=== PATIENT | male | born 1990 ===

== ENCOUNTER 2016-11-15 15:16 | Emergency (ER) | payer OTHER, BC ==
--- NOTE | 2016-11-15 15:22 | ED PDOC ---
Arrival/HPI - General Time Seen by Provider: 11/15/16 15:19 Historian: Patient - History of Present Illness Narrative History of Present Illness (Text): 11/15/16 15:19 26 yh/o male, no pmh, nkda, last tetanus doesn't remember, c/o finger laceration x 5 hours. Pt. stated that he was accidentally cut by the knife, no numbness or tingling, no dizziness, no headache or night sweat, no dizziness, no rash, no loss of sensation, no other medical or psychological complaints. Past Medical History - Provider Review Nursing Documentation Reviewed: Yes - Infectious Disease Hx of Infectious Diseases: None - Tetanus Immunization Tetanus Immunization: Unknown - Past Medical History Past Medical History: No Previous - Cardiac Hx Cardiac Disorders: No - Pulmonary Hx Respiratory Disorders: No - Neurological Hx Neurological Disorder: No - HEENT Hx HEENT Disorder: No - Renal Hx Renal Disorder: No Hx Dialysis: No - Endocrine/Metabolic Hx Endocrine Disorders: No - Hematological/Oncological Hx Blood Disorders: No - Integumentary Hx Dermatological Disorder: No - Musculoskeletal/Rheumatological Hx Musculoskeletal Disorders: No - Gastrointestinal Hx Gastrointestinal Disorders: No - Genitourinary/Gynecological Hx Genitourinary Disorders: No - Psychiatric Hx Depression: No Hx Emotional Abuse: No Hx Physical Abuse: No Hx Substance Use: No - Past Surgical History Past Surgical History: No Previous - Anesthesia Hx Anesthesia: No Hx Anesthesia Reactions: No Hx Malignant Hyperthermia: No - Suicidal Assessment Feels Threatened In Home Enviroment: No Family/Social History - Physician Review Nursing Documentation Reviewed: Yes Family/Social History: Unknown Family HX Smoking Status: Never Smoked Hx Alcohol Use: No Hx Substance Use: No Hx Substance Use Treatment: No Allergies/Home Meds Allergies/Adverse Reactions: Allergies No Known Allergies Allergy (Verified 11/15/16 15:25) Review of Systems - Review of Systems Constitutional: absent: Fatigue, Fevers Eyes: absent: Vision Changes ENT: absent: Hearing Changes Respiratory: absent: SOB, Cough Cardiovascular: absent: Chest Pain Gastrointestinal: absent: Abdominal Pain, Diarrhea, Nausea, Vomiting Skin: Laceration. absent: Rash, Pruritis, Skin Lesions, Abscess, Ulcer, Cellulitis Physical Exam Vital Signs Temp Pulse Resp BP Pulse Ox 11/15/16 15:21 98.7 F 86 18 146/71 97 Appearance: Positive for: Well-Appearing, Non-Toxic, Comfortable Pain Distress: Mild Mental Status: Positive for: Alert and Oriented X 3 - Systems Exam Head: Present: Atraumatic, Normocephalic Pupils: Present: PERRL Extroacular Muscles: Present: EOMI Conjunctiva: Present: Normal Mouth: Present: Moist Mucous Membranes Neck: Present: Normal Range of Motion Respiratory/Chest: Present: Clear to Auscultation, Good Air Exchange. No: Respiratory Distress, Accessory Muscle Use Cardiovascular: Present: Regular Rate and Rhythm, Normal S1, S2. No: Murmurs Abdomen: Present: Normal Bowel Sounds. No: Tenderness, Distention, Peritoneal Signs Back: Present: Normal Inspection Upper Extremity: Present: Normal Inspection, Other (Rt. hand 4th digit: distal tuft ventral pad aspect visible approx. 2cm laceration wound with no active bleeding, FROM without limitation, sensation intact, motor 5/5, +radial uplse, capillary refill< 2 seconds, neurovascular intact. ). No: Cyanosis, Edema Lower Extremity: Present: Normal Inspection. No: Edema Neurological: Present: GCS=15, Speech Normal Skin: Present: Warm, Dry, Normal Color. No: Rashes Psychiatric: Present: Alert, Oriented x 3, Normal Insight, Normal Concentration Medical Decision Making ED Course and Treatment: 11/15/16 15:20 -keflex, motrin, tetanus. -sensation intact, motor 5/5, wound irrigate with 1000cc normal saline, clean with betadine, 1% lidocaine for digit block with 2cc, sterile procedure, 5-0 nylon made 5 sutures, hemostasis obtained, bacitracin and gauze dressing applied , sensation intact, motor 5/5, Discharge home with keflex, motrin, bacitracin oinment, keep the dressing dry and clean for 2 days, sutures need to be removed by day 12-3, avoid strenuous exercise or activity, follow up with your own pmd and hand specialist within 2 days, return to the ER for any new or worsening signs or symptoms. - Medication Orders Current Medication Orders: Discontinued Medications Tetanus/Reduced Diphtheria/Acell Pertussis (Boostrix Vaccine Inj) 0.5 ml IM .ONCE ONE Stop: 11/15/16 15:49 Last Admin: 11/15/16 15:58 Dose: 0.5 ml - PA / MEETING PLANNER / Resident Statement MD/DO has reviewed & agrees with the documentation as recorded. Disposition/Present on Arrival - Present on Arrival Any Indicators Present on Arrival: No History of DVT/PE: No History of Uncontrolled Diabetes: No Urinary Catheter: No History of Decub. Ulcer: No History Surgical Site Infection Following: None - Disposition Have Diagnosis and Disposition been Completed?: Yes Diagnosis: Finger laceration Disposition Time: 15:22 Condition: GOOD Additional Instructions: Discharge home with keflex, motrin, bacitracin oinment, keep the dressing dry and clean for 2 days, sutures need to be removed by day 12-3, avoid strenuous exercise or activity, follow up with your own pmd and hand specialist within 2 days, return to the ER for any new or worsening signs or symptoms. Prescriptions: Bacitracin Ointment [Bacitracin] 1 appful TOP BID #15 g Cephalexin [Keflex] 500 mg PO TID #21 capsule Ibuprofen [Motrin Tab] 600 mg PO QID PRN #24 tab PRN Reason: Other Referrals: [facility] at [facility] [place] - Follow up with primary Lyn Tejada MD [Non-Staff] - Follow up with primary Forms: WORK NOTE
[2016-11-15 15:25] VITALS: BMI 25.0
[2016-11-15] MEDS ORDERED: TDAP Vaccine 0.5 mL Syr IM ONE (15:48)
[2016-11-15 16:33] VITALS: BP 124/79; PULSE 73; RESP 20; TEMP 98; O2SAT 100
== END 2016-11-15 16:00 | disposition home or self-care (01) ==
LOC: ED 15:16
DX: S61.214A Laceration without foreign body of right ring finger without damage to nail, initial encounter (principal); W26.0XXA Contact with knife, initial encounter; Y93.89 Activity, other specified; Y92.89 Other specified places as the place of occurrence of the external cause; Y99.8 Other external cause status; Z23 Encounter for immunization

== ENCOUNTER 2016-11-18 08:42 | Emergency (ER) | payer OTHER ==
[2016-11-18 08:43] VITALS: BMI 25.0
--- NOTE | 2016-11-18 09:11 | ED PDOC ---
Arrival/HPI - General Chief Complaint: Wound Check Time Seen by Provider: 11/18/16 09:02 Historian: Patient - History of Present Illness Narrative History of Present Illness (Text): 11/18/16 09:08 26yo male present to ED for wound care. He was seen here on November 15 for left 4th finger laceration and sutures was placed. States he was told to come back for re evaluation. He is currently on Keflex. Denies purulent discharge from wound, fever, chills, redness, any other complaint. Past Medical History - Provider Review Nursing Documentation Reviewed: Yes - Infectious Disease Hx of Infectious Diseases: None - Tetanus Immunization Tetanus Immunization: Unknown - Past Medical History Past Medical History: No Previous - Cardiac Hx Cardiac Disorders: No - Pulmonary Hx Respiratory Disorders: No - Neurological Hx Neurological Disorder: No - HEENT Hx HEENT Disorder: No - Renal Hx Renal Disorder: No Hx Dialysis: No - Endocrine/Metabolic Hx Endocrine Disorders: No - Hematological/Oncological Hx Blood Disorders: No - Integumentary Hx Dermatological Disorder: No - Musculoskeletal/Rheumatological Hx Musculoskeletal Disorders: No - Gastrointestinal Hx Gastrointestinal Disorders: No - Genitourinary/Gynecological Hx Genitourinary Disorders: No - Psychiatric Hx Depression: No Hx Emotional Abuse: No Hx Physical Abuse: No Hx Substance Use: No - Past Surgical History Past Surgical History: No Previous - Surgical History Hx Appendectomy: Yes - Anesthesia Hx Anesthesia: No Hx Anesthesia Reactions: No Hx Malignant Hyperthermia: No - Suicidal Assessment Feels Threatened In Home Enviroment: No Family/Social History - Physician Review Nursing Documentation Reviewed: Yes Family/Social History: Unknown Family HX Smoking Status: Never Smoked Hx Alcohol Use: No Hx Substance Use: No Hx Substance Use Treatment: No Allergies/Home Meds Allergies/Adverse Reactions: Allergies No Known Allergies Allergy (Verified 11/15/16 15:25) Review of Systems - Physician Review All systems were reviewed & negative as marked: Yes - Review of Systems Constitutional: Normal Eyes: Normal ENT: Normal Respiratory: Normal Cardiovascular: Normal Gastrointestinal: Normal Genitourinary Male: Normal Musculoskeletal: Normal Skin: Other (Wound check) Neurological: Normal Endocrine: Normal Hemo/Lymphatic: Normal Psychiatric: Normal Physical Exam Vital Signs Reviewed: Yes Vital Signs Temp Pulse Resp BP Pulse Ox 11/18/16 09:03 98.2 F 75 16 136/84 96 Temperature: Afebrile Blood Pressure: Normal Pulse: Regular Respiratory Rate: Normal Appearance: Positive for: Well-Appearing, Non-Toxic, Comfortable Pain Distress: None Mental Status: Positive for: Alert and Oriented X 3 - Systems Exam Head: Present: Atraumatic, Normocephalic Pupils: Present: PERRL Extroacular Muscles: Present: EOMI Conjunctiva: Present: Normal Mouth: Present: Moist Mucous Membranes Neck: Present: Normal Range of Motion Respiratory/Chest: Present: Clear to Auscultation, Good Air Exchange. No: Respiratory Distress, Accessory Muscle Use Cardiovascular: Present: Regular Rate and Rhythm, Normal S1, S2. No: Murmurs Abdomen: Present: Normal Bowel Sounds. No: Tenderness, Distention, Peritoneal Signs Back: Present: Normal Inspection Upper Extremity: Present: Normal Inspection. No: Cyanosis, Edema Lower Extremity: Present: Normal Inspection. No: Edema Neurological: Present: GCS=15, CN II-XII Intact, Speech Normal Skin: Present: Warm, Dry, Normal Color, Other (Sutures noted in place to left 4th finger. No erythema. No purulent discharge. No sign of infection). No: Rashes Psychiatric: Present: Alert, Oriented x 3, Normal Insight, Normal Concentration Medical Decision Making ED Course and Treatment: 11/18/16 09:12 Pt was afebrile, wound noted without sign of infection. Wound was lightly irrigated , bacitracine applied and dressed. He was DC and advised to f/u with his PMD. TRT ED for any new or worsening symptoms. Disposition/Present on Arrival - Present on Arrival Any Indicators Present on Arrival: No History of DVT/PE: No History of Uncontrolled Diabetes: No Urinary Catheter: No History of Decub. Ulcer: No History Surgical Site Infection Following: None - Disposition Have Diagnosis and Disposition been Completed?: Yes Diagnosis: Visit for wound check Disposition: HOME/ ROUTINE Disposition Time: 09:15 Patient Plan: Discharge Condition: STABLE Discharge Instructions (ExitCare): Acute Wound Care (ED) Additional Instructions: Keep wound clean and dry Continue with medication Follow up with your Private Doctor Return to ED for any new symptoms Referrals: [facility] at [facility] [place] [Outside] - Follow up with primary
[2016-11-18 09:13] VITALS: BP 136/84; PULSE 75; RESP 16; TEMP 98.2; O2SAT 96
== END 2016-11-18 09:17 | disposition home or self-care (01) ==
LOC: ED 08:42
DX: Z51.89 Encounter for other specified aftercare (principal)

== ENCOUNTER 2016-11-28 18:35 | Emergency (ER) | payer OTHER ==
[2016-11-28 18:36] VITALS: BMI 25.0
[2016-11-28 18:43] VITALS: BP 117/77; PULSE 74; RESP 16; TEMP 98.4; O2SAT 96
--- NOTE | 2016-11-28 19:28 | ED PDOC ---
Arrival/HPI - General Chief Complaint: Suture/Staple Removal Time Seen by Provider: 11/28/16 18:37 Historian: Patient - History of Present Illness Narrative History of Present Illness (Text): 11/28/16 19:47 26yr old male presents today for suture removal to right 4th finger. pt states sutures have been in place for 13 days. pt states he has been working daily 10 hours a day with gloves on. pt states he has had wound covered daily with bacitracin applied. pt denies fever/chills. denies pain. pt states he completed course of ABx. denies limited rom of finger. no other complaints. Time/Duration: Other (13days) Past Medical History - Provider Review Nursing Documentation Reviewed: Yes - Travel History Have you recently traveled outside [place] w/in the past 3 mons?: No - Infectious Disease Hx of Infectious Diseases: None - Tetanus Immunization Tetanus Immunization: Unknown - Past Medical History Past Medical History: No Previous - Cardiac Hx Cardiac Disorders: No - Pulmonary Hx Respiratory Disorders: No - Neurological Hx Neurological Disorder: No - HEENT Hx HEENT Disorder: No - Renal Hx Renal Disorder: No Hx Dialysis: No - Endocrine/Metabolic Hx Endocrine Disorders: No - Hematological/Oncological Hx Blood Disorders: No - Integumentary Hx Dermatological Disorder: No - Musculoskeletal/Rheumatological Hx Musculoskeletal Disorders: No - Gastrointestinal Hx Gastrointestinal Disorders: No - Genitourinary/Gynecological Hx Genitourinary Disorders: No - Psychiatric Hx Depression: No Hx Emotional Abuse: No Hx Physical Abuse: No Hx Substance Use: No - Past Surgical History Past Surgical History: No Previous - Surgical History Hx Appendectomy: Yes - Anesthesia Hx Anesthesia: No Hx Anesthesia Reactions: No Hx Malignant Hyperthermia: No - Suicidal Assessment Feels Threatened In Home Enviroment: No Family/Social History - Physician Review Nursing Documentation Reviewed: Yes Family/Social History: Unknown Family HX Smoking Status: Never Smoked Hx Alcohol Use: No Hx Substance Use: No Hx Substance Use Treatment: No Allergies/Home Meds Allergies/Adverse Reactions: Allergies No Known Allergies Allergy (Verified 11/28/16 18:42) Review of Systems - Review of Systems Constitutional: absent: Fatigue, Fevers Respiratory: absent: SOB, Cough Cardiovascular: absent: Chest Pain, Palpitations Gastrointestinal: absent: Abdominal Pain, Nausea, Vomiting Musculoskeletal: absent: Arthralgias, Back Pain, Neck Pain Skin: Laceration Neurological: absent: Headache, Dizziness Physical Exam Vital Signs Reviewed: Yes Vital Signs Temp Pulse Resp BP Pulse Ox 11/28/16 18:43 98.4 F 74 16 117/77 96 Temperature: Afebrile Blood Pressure: Normal Pulse: Regular Respiratory Rate: Normal Appearance: Positive for: Well-Appearing, Non-Toxic, Comfortable Pain Distress: None Mental Status: Positive for: Alert and Oriented X 3 - Systems Exam Head: Present: Atraumatic Mouth: Present: Moist Mucous Membranes Respiratory/Chest: Present: Clear to Auscultation, Good Air Exchange. No: Respiratory Distress, Accessory Muscle Use Cardiovascular: Present: Regular Rate and Rhythm, Normal S1, S2. No: Murmurs Upper Extremity: Present: Normal ROM, NORMAL PULSES, Swelling, Capillary Refill < 2s, Other (there is a macerated, laceration with [address] no erythema; no purulent discharge. ). No: Tenderness, Deformity Skin: Present: Warm, Dry Psychiatric: Present: Alert Medical Decision Making ED Course and Treatment: 11/28/16 19:32 Patient is nontoxic well-appearing in no distress. Vital signs are stable. sutures have been in place for 13 days. 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 will remove sutures. suture removal: 5 sutures removed, wound not completely healed. steri strips applied; will add bactrim PO/ kelfex po pt seen and evaluated by dr. pinedo. advised keeping wound clean and DRY. advised f/u with hand specialist. advised immediate return if symptoms worsen persist or if new symptoms develop. Impression: Wound check, suture removal Keep the wound clean and dry bactrim twice daily x 7 days keflex; 1 capsule 4 times daily x 7 days. Follow up with primary care physician within the next 2 days Follow up with the Hand specialist within the next 2 days. Follow up with the surgeon within the next 2 days. Return immediately if symptoms worsen persist or if new symptoms develop Disposition/Present on Arrival - Present on Arrival Any Indicators Present on Arrival: No History of DVT/PE: No History of Uncontrolled Diabetes: No Urinary Catheter: No History of Decub. Ulcer: No History Surgical Site Infection Following: None - Disposition Have Diagnosis and Disposition been Completed?: Yes Diagnosis: Visit for suture removal, Wound dehiscence Disposition: HOME/ ROUTINE Disposition Time: 19:28 Patient Plan: Discharge Patient Problems: Current Active Problems Problem Status Onset Visit for suture removal Acute Wound infection Acute Condition: GOOD Discharge Instructions (ExitCare): Laceration (ED) Additional Instructions: Keep the wound clean and dry bactrim twice daily x 7 days keflex; 1 capsule 4 times daily x 7 days. Follow up with primary care physician within the next 2 days Follow up with the Hand specialist within the next 2 days. Follow up with the surgeon within the next 2 days. Return immediately if symptoms worsen persist or if new symptoms develop Prescriptions: Cephalexin [Keflex] 500 mg PO QID #28 capsule Sulfamethoxazole/Trimethoprim [Bactrim DS 800 mg-160 mg] 1 tab PO BID #14 tab Referrals: Shivam Alvarado MD [Staff Provider] - Follow up with primary Lyn Tejada MD [Non-Staff] - Follow up with primary Claudia Lopez MD [Staff Provider] - Follow up with primary [facility] [place] [Outside] - Follow up with primary [facility] [Outside] - Follow up with primary Forms: WORK NOTE
== END 2016-11-28 19:55 | disposition home or self-care (01) ==
LOC: ED 18:35
DX: Z48.02 Encounter for removal of sutures (principal); T81.33XA Disruption of traumatic injury wound repair, initial encounter; Y83.8 Other surgical procedures as the cause of abnormal reaction of the patient, or of later complication, without mention of misadventure at the time of the procedure; Y92.89 Other specified places as the place of occurrence of the external cause